=== PATIENT | female | born 1960 | race American Indian/Alaskan Native ===

== ENCOUNTER 2017-02-22 08:43 | Outpatient (CLI) | payer BC ==
--- NOTE | 2017-02-22 13:34 | Mammography Report ---
BONE DEXA:02/22/17 08:43:00 CLINICAL: Postmenopausal and history of right breast cancer. COMPARISON: 01/03/16 TECHNIQUE: Two site bone DEXA performed on an Hologic scanner. FINDINGS: The average BMD of the lumbar spine L1-L4 is 0.819g/cm squared with a T-score of -2.1 and a Z-score of -0.8. This compares to 0.828g/cm squared on the last exam and represents a -1.1% change from the previous baseline. The average BMD of the left hip is 0.844g/cm squared with a T-score of -0.8 and a Z-score of 0. This compares to 0.846g/cm squared on the last exam and represents a -0.2% change from the previous study. IMPRESSION: 1. WHO classification: Osteopenia with increased fracture risk based on spine measurements. A slight decline in spine BMD compared to the previous exam. 2. WHO classification: Normal with average fracture risk based on left hip measurements. A slight decline in left hip BMD compared to the previous exam. RECOMMENDATION: Clinical correlation and routine screening. DEFINITIONS: BMD = Bone Mineral Density T-score = BMD related to mean peak bone mass of young adult (mean expressed in Standard Deviation) Z-score = Age matched BMD expressed in SD World Health Organization (WHO) Diagnostic Criteria Normal T-score > -1 SD Osteopenia T-score between -1 and -2.4 SD Osteoporosis T-score -2.5 SD or below NOTE: BMD is not the only risk factor for fracture; also consider factors such as the patient's age, risk of falling, previous osteoporotic fracture, family history of osteoporotic fractures, current smoker, and low body weight. Z-scores are not calculated if >80 years of age.
--- NOTE | 2017-02-22 13:39 | Mammography Report ---
LEFT DIGITAL DIAGNOSTIC MAMMOGRAM WITH CAD: 02/22/17 08:43:00 CLINICAL: Breast cancer survivor status post right mastectomy. Palpable thickening in the outer breast felt by her doctor. COMPARISON:None. Her previous mammograms were done at [facility]. FINDINGS: The breast is predominant fatty with a few scattered fibroglandular densities.No mass, architectural distortion or suspicious calcifications. IMPRESSION: No mammographic evidence of malignancy.At the time I recommended an ultrasound of the left breast for completeness sake. However, she did not stay for the ultrasound. BI-RADS CATEGORY: 0--Needs Additional Imaging RECOMMENDATION: Return for a left breast ultrasound. ACR BI-RADS MAMMOGRAPHIC CODES: 0 = Needs additional imaging evaluation; 1 = Negative; 2 = Benign; 3 = Probably benign; 4 = Suspicious; 5 = Malignant; 6 = Known biopsy-proven malignancy COMMENT: 1. Dense breast tissue, i.e., adenosis, fibrocystic changes, etc., may obscure an underlying neoplasm. 2. Approximately 10% of cancers are not detected with mammography. 3. A negative mammography report should not delay biopsy if a clinically suspicious mass is present. COMMENT: Patient follow-up letters are generated via our [employer] Nurse Navigator application.
== END 2017-02-22 08:44 | disposition home or self-care (01) ==
LOC: SPVWC 08:43
PROVIDERS: ATTEND Internal Medicine Hematology & Oncology
DX: C50.311 Malignant neoplasm of lower-inner quadrant of right female breast (principal); Z78.0 Asymptomatic menopausal state; M85.88 Other specified disorders of bone density and structure, other site
CPT/HCPCS: 77080; G0206

== ENCOUNTER 2017-03-11 08:20 | Outpatient (CLI) | payer BC ==
--- NOTE | 2017-03-12 08:37 | PET Report ---
PET SB TO MT SUBSEQUENT: HISTORY: Breast cancer. TECHNIQUE: 12.1 millicuries F-18 FDG was administered intravenously. Noncontrast CT images and PET images were obtained from the skull base to the proximal thighs. Fused images were reviewed on a workstation. The patient's blood glucose level measured 106. COMPARISON: 11/21/15. FINDINGS: BRAIN: physiologic FDG uptake in the imaged brain. NECK: Focal uptake along the inferior border of the thyroid gland is again noted with Max SUV measuring 6.8 as compared to 8.4 on the previous study. 2.2 cm soft tissue density nodule in this area is unchanged and may be within the thyroid gland. CHEST WALL: Right mastectomy changes are stable. No recurrent chest wall mass is appreciated. MEDIASTINUM: physiologic FDG uptake. LUNGS: physiologic FDG uptake. PLEURA/PERICARDIUM: physiologic FDG uptake. THORACIC LYMPH NODES: physiologic FDG uptake. HEPATOBILIARY: physiologic FDG uptake. Mean liver SUV measures 4.0. Numerous liver cysts are noted and unchanged. PANCREAS: physiologic FDG uptake. SPLEEN: physiologic FDG uptake. ADRENAL GLANDS: physiologic FDG uptake. KIDNEYS/RENAL COLLECTING SYSTEMS: physiologic FDG uptake. BOWEL/MESENTERY: physiologic FDG uptake. PELVIC VISCERA: physiologic FDG uptake. ABDOMINAL/PELVIC LYMPH NODES: physiologic FDG uptake. MUSCULOSKELETAL: physiologic FDG uptake. IMPRESSION: Negative PET/CT. Stable findings since 11/21/15 exam. There is focal uptake along the inferior border of the thyroid gland as outlined above which is essentially unchanged.
== END 2017-03-11 08:21 | disposition home or self-care (01) ==
LOC: PET 08:20
PROVIDERS: ATTEND Internal Medicine Hematology & Oncology
DX: C50.311 Malignant neoplasm of lower-inner quadrant of right female breast (principal); E04.1 Nontoxic single thyroid nodule; Z90.11 Acquired absence of right breast and nipple; K76.89 Other specified diseases of liver; D64.9 Anemia, unspecified; E03.9 Hypothyroidism, unspecified; J18.9 Pneumonia, unspecified organism
CPT/HCPCS: 78815; 82962; A9552

== ENCOUNTER 2018-02-14 08:35 | Outpatient (CLI) | payer MEDICARE ==
--- NOTE | 2018-02-14 11:42 | Mammography Report ---
BONE DEXA:02/14/18 08:35:00 CLINICAL: History of right breast cancer. On aromatase inhibitor. COMPARISON: 02/22/17 and 01/03/16 TECHNIQUE: Two site bone DEXA performed on an [employer] scanner. FINDINGS: The average BMD of the lumbar spine L1-L4 is 0.817g/cm squared with a T-score of -2.1 and a Z-score of -0.8. This compares to 0.819g/cm squared on the last exam and represents a -0.2% change from the previous study and a -1.3% change from baseline. The average BMD of the left hip is 0.876g/cm squared with a T-score of -0.5 and a Z-score of +0.3. This compares to 0.844g/cm squared on the last exam and represents a +3.8% change from the previous study and a +1.6% change from baseline. IMPRESSION: 1. WHO classification: Osteopenia with increased fracture risk based on spine measurements. A slight decline in spine BMD compared to the previous exam. 2. WHO classification: Normal with average fracture risk based on left hip measurements. A slight improvement in left hip BMD compared to the previous exam. RECOMMENDATION: Clinical correlation and routine screening. DEFINITIONS: BMD = Bone Mineral Density T-score = BMD related to mean peak bone mass of young adult (mean expressed in Standard Deviation) Z-score = Age matched BMD expressed in SD World Health Organization (WHO) Diagnostic Criteria Normal T-score > -1 SD Osteopenia T-score between -1 and -2.4 SD Osteoporosis T-score -2.5 SD or below NOTE: BMD is not the only risk factor for fracture; also consider factors such as the patient's age, risk of falling, previous osteoporotic fracture, family history of osteoporotic fractures, current smoker, and low body weight. Z-scores are not calculated if >80 years of age.
== END 2018-02-14 08:36 | disposition home or self-care (01) ==
LOC: SPVWC 08:35
PROVIDERS: ATTEND Internal Medicine Hematology & Oncology
DX: C50.311 Malignant neoplasm of lower-inner quadrant of right female breast (principal); Z78.0 Asymptomatic menopausal state; F17.210 Nicotine dependence, cigarettes, uncomplicated; E03.9 Hypothyroidism, unspecified
CPT/HCPCS: 77080

== ENCOUNTER 2018-11-24 11:26 | Outpatient (CLI) | payer MEDICARE ==
--- NOTE | 2018-11-28 11:44 | PET Report ---
PET/CT:11/24/18 11:26:00 CLINICAL: Breast cancer restaging. RADIOPHARMACEUTICAL: 14.761mCi F18-FDG. COMPARISON: 03/11/17 PET/CT TECHNIQUE- Following intravenous injection of F-18 FDG and an approximately 60 minute uptake period, CT and PET images from the mid skull to the upper thighs were acquired with the patient in the fasted state. No contrast was administered. The CT protocol used for this PET CT study is designed for attenuation correction and anatomic localization of PET abnormalities. This vamp marker CT is not desired to produce and cannot replace, aisym-oy-myg-art diagnostic CT scans with specific imaging protocols for different body parts and indications. Plasma glucose at the time of this test: 98g/dl. The standardized uptake values (SUV) are normalized to patient body weight and indicate the highest activity concentration (SUV max) in a given disease site. FINDINGS: Brain--Physiologic FDG uptake in the visualized regions of the brain. Neck--Physiologic FDG uptake in mucosal structures. Focal FDG uptake in a hypodense thyroid nodule as seen on the last exam. The nodule measures 2.3 cm with SUV 6.0 compared to 2.4 cm and SUV 6.8. Chest--Physiologic FDG uptake in mediastinal blood pool and myocardium. Status post right mastectomy. Lungs--No abnormal uptake. No pulmonary nodule or mass. Pleura/pericardium--No abnormal uptake. Thoracic nodes--No abnormal uptake. Hepatobiliary--No abnormal uptake. Liver background SUV mean, as a reference for comparing FDG studies, is 3.9 compared to 3.8 on the last exam. Numerous benign hepatic cysts are not significantly changed compared to the last exam. Spleen--No abnormal uptake. Pancreas--No abnormal uptake. Adrenal Glands--No abnormal uptake. Kidneys/Ureters/Bladder--No abnormal uptake. Abdominopelvic Nodes--No abnormal uptake. Bowel/Peritoneum/Mesentery--No abnormal uptake. Pelvic organs--No abnormal uptake. Bones/Soft Tissues--No abnormal uptake and no suspicious bone lesions. IMPRESSION- Negative study with no evidence of disease recurrence or metastasis.Stable benign 2.3 cm thyroid nodule.
== END 2018-11-24 11:27 | disposition home or self-care (01) ==
LOC: PET 11:26
PROVIDERS: ATTEND Internal Medicine Hematology & Oncology
DX: C50.311 Malignant neoplasm of lower-inner quadrant of right female breast (principal); E03.9 Hypothyroidism, unspecified
CPT/HCPCS: 78815; 82962; A9552

== ENCOUNTER 2018-11-25 10:21 | Outpatient (CLI) | payer MEDICARE ==
--- NOTE | 2018-11-25 11:32 | Mammography Report ---
BONE DENSITY STUDY: Aromatase inhibitor; followup osteopenia. DEFINITIONS: BMD = Bone Mineral Density T-score = BMD related to mean peak bone mass of young adult (mean expressed in Standard Deviation) Z-score = Age matched BMD expressed in SD World Health Organization (WHO) Diagnostic Criteria Normal T-score > -1 SD Osteopenia T-score between -1 and -2.4 SD Osteoporosis T-score -2.5 SD or below FINDINGS: The weighted average BMD of lumbar spine L1-L4 is 0.847 with a T-score of -1.8. The weighted average BMD of the left hip is 0.86 with a T-score of -0.5. Compared to her prior examination in February 2018 the hip mineralization has remained stable with generalized mild improvement in the lumbar spine. IMPRESSION: The patient's average T-score is diagnostic for osteopenia and average relative risk for fracture. NOTE: BMD is not the only risk factor for fracture; also consider factors such as the patient's age, risk of falling, previous osteoporotic fracture, family history of osteoporotic fractures, current smoker, and low body weight. Garner's triangle is a region of interest in femur, predominantly of trabecular bone. It is not a true anatomic site, and [facility] does not recommend its use clinically.
== END 2018-11-25 10:22 | disposition home or self-care (01) ==
LOC: MAMMO 10:21
PROVIDERS: ATTEND Internal Medicine Hematology & Oncology
DX: M85.80 Other specified disorders of bone density and structure, unspecified site (principal); C50.311 Malignant neoplasm of lower-inner quadrant of right female breast; N95.9 Unspecified menopausal and perimenopausal disorder; E03.9 Hypothyroidism, unspecified; Z79.811 Long term (current) use of aromatase inhibitors
CPT/HCPCS: 77080